=== PATIENT | female | born 1950 | race Caucasian/White ===

== ENCOUNTER 2016-10-27 15:08 | Emergency (ER) | payer OTHER ==
[~2016-10-27] VITALS: Ht 165.1 cm; Wt 52.6 kg
[~2016-10-27 15:08] MED LIST: ASPIRIN325 M2 PO; DILAUDID2 M1 PO; IBUPROFEN800 M1 PO; KEFLEX500 M1 PO; PERCOCET 5-3251 EACH PO
[2016-10-27 15:46] LABS: ABSOLUTE BASOPHIL COUNT 0 /CUMM (0.0-0.2); ABSOLUTE EOSINOPHIL COUNT 0.1 /CUMM (0.0-0.7); ABSOLUTE GRANULOCYTE CT 4.3 /CUMM (1.4-6.5); ABSOLUTE LYMPH COUNT 2.6 /CUMM (1.2-3.4); ABSOLUTE MONOCYTE COUNT 0.5 /CUMM (0.10-0.60); BASOPHIL % 0.6 % (0.0-2.0); EOSINOPHIL % 0.9 % (0-5); GRANULOCYTE % 56.8 % (42.2-75.2); MEAN CORPUSCULAR HGB 33.6 PG (27.0-31.0); MEAN CORPUSCULAR VOLUME 101.8 FL (81.0-99.0); MEAN PLATELET VOLUME 8.3 FL (7.4-10.4); PLATELET COUNT 248 /CUMM (130-400); RBC DISTRIBUTION WIDTH 13.5 % (11.5-14.5); RED BLOOD CELL CT 4.02 /CUMM (4.20-5.40); WHITE BLOOD CELL COUNT 7.6 /CUMM (4.8-10.8)
[2016-10-27 15:56] LABS: PT 11.7 SEC (9.4-12.5); PTT 31 SEC (25-37)
--- NOTE | 2016-10-27 16:58 | ED UPPER/LOWER EXTREMITY COMPL ---
History of Present Illness General Chief Complaint: Lower Extremity Problems Stated Complaint: PT SIB DR FOR POSSIBLE BLOOD CLOT I THE LEFT LEG Source: patient Exam Limitations: no limitations Vital Signs & Intake/Output Vital Signs & Intake/Output Vital Signs Date Time Temp Pulse Resp B/P Pulse O2 O2 Flow FiO2 Ox Delivery Rate 10/27 1727 98.6 76 18 148/85 98 Room Air 10/27 1525 99.0 95 20 156/85 99 Room Air ED Intake and Output 10/28 0000 10/27 1200 Intake Total Output Total Balance Patient 116 lb Weight Allergies Coded Allergies: No Known Drug Allergies (10/27/16) Triage Note: TRIAGE: PT SENT TO ER BY DR SMITH FOR ?BLOOD CLOT S/P PATELLAR FX/SX ON 09/04. PT STATES HAS HAD PAIN SINCE SX BUT HAS BEEN WORSE IN LAST 2 WEEKS. HAS HAD SWELLING WELL. HAD U/S TODAY WHICH WAS REPORTED TO HAVE SHOWN CLOTS. Triage Nurses Notes Reviewed? yes HPI: This patient is a 66-year-old female who presented to the emergency department today sent in at the request of Dr. CASON for evaluation of a clot. The patient had a surgery on 09/03/2016 for a patellar fracture. The patient was put on aspirin after that time, but is currently not on any medication or any anticoagulation. The patient reported that over the last several weeks her leg has been more painful and swollen. She had a unilateral venous Doppler performed today which showed a positive deep venous thrombosis below the knee, nonocclusive in the tibial peroneal trunk and occlusive involving the peroneal and soleal veins. The patient was sent here to the emergency department for further evaluation. The patient reported that the pain is constant and gets up to a 6 out of 10. The pain radiates from the back or knee down to her calf. She denied any difficulty breathing, chest pain, palpitations. She did report some numbness in the bottom of her left foot. (ROBERT BROUSSARD,ARMIDA) Reconcile Medications Apixaban (Eliquis) 5 MG TABLET 1-2 TAB PO BID DVT TAKE 2 TABLETS TWICE A DAY FOR 7 DAYS. THEN TAKE 1 TABLET TWICE A DAY FOR 7 DAYS Aspirin (Aspirin*) 325 MG TABLET 1 TAB PO DAILY BLOOD THINNER Cephalexin (Keflex) 500 MG CAPSULE 1 CAP PO Q6H INFECTION PREVENTION Hydromorphone HCl (Dilaudid) 2 MG TABLET 1-2 TAB PO Q4-6H PRN PAIN Ibuprofen 800 MG TABLET 1 TAB PO Q8P PRN PAIN (TUAN BARBER,SAMANTHA) Past History Travel History Traveled to [place] past 21 day No Medical History Any Pertinent Medical History? see below for history Neurological: NONE EENT: NONE Cardiovascular: NONE Respiratory: NONE Gastrointestinal: NONE Hepatic: NONE Renal: NONE Musculoskeletal: L PATELLAR FX Psychiatric: NONE Endocrine: NONE Blood Disorders: NONE Cancer(s): NONE [employer]'S HELPER/Reproductive: NONE History of MRSA: No History of VRE: No History of CDIFF: No Tetanus Vaccine: 09/03/16 Surgical History Surgical History: LEFT PATELLAR SURGERY Psychosocial History Services at Home None What is your primary language Arabic Tobacco Use: Never used ETOH Use: occasional use Illicit Drug Use: denies illicit drug use Family History Hx Contributory? No (ARMIDA JONES PA-C) Review of Systems Review of Systems Constitutional: Reports: no symptoms. EENTM: Reports: no symptoms. Respiratory: Reports: no symptoms. Cardiovascular: Reports: no symptoms. Gastrointestinal/Abdominal: Reports: no symptoms. Musculoskeletal: Reports: see HPI. Skin: Reports: no symptoms. Neurological/Psychological: Reports: see HPI. All Other Systems: Reviewed and Negative (ARMIDA JONES PA-C) Physical Exam Physical Exam General Appearance: well developed/nourished, no apparent distress, alert, awake Comments: Well-developed well-nourished person in no acute distress HEENT: Normal EENT exam, head normocephalic, moist mucous membranes Neck: Supple Back: normal inspection Cardiovascular: Regular rate and rhythm with no murmurs, rubs, or gallops Respiratory: No respiratory distress. Breath sounds clear to auscultation bilaterally Left lower extremity: Tenderness to palpation over the calf and posterior aspect of the knee. Nonpitting edema to the lower extremity. Range of motion limited at the knee due to immobilizer currently in place. Dorsalis pedis and posterior tibialis pulses 2+ Neuro: Alert oriented x3, cranial nerves II through XII grossly intact. Skin: No appreciable rash on exposed skin, skin is warm and dry. Psych: Mood and affect is normal (ARMIDA JONES PA-C) Progress Differential Diagnosis: arterial insufficiency, cellulitis, CHF, compartment syndrome, contusion, dislocation, DVT, fracture, gout, septic arthritis, sprain Plan of Care: Orders Procedure Date/time Status TROPONIN LEVEL 10/27 1532 Complete PARTIAL THROMBOPLASTIN TIME 10/27 153 Complete PROTHROMBIN TIME 10/27 153 Complete COMPREHENSIVE METABOLIC PANEL 10/27 153 Complete CBC WITHOUT DIFFERENTIAL 10/27 153 Complete Laboratory Tests 10/27/16 1535: Anion Gap 10, Estimated GFR > 60, BUN/Creatinine Ratio 27.1 H, Glucose 104 H, Calcium 10.0, Total Bilirubin 1.0, AST 27, ALT 34, Alkaline Phosphatase 85, Troponin I < 0.01, Total Protein 8.0, Albumin 4.7, Globulin 3.3, Albumin/ Globulin Ratio 1.4, PT 11.7, INR 1.12, APTT 31, CBC w Diff NO MAN DIFF REQ, RBC 4.02 L, MCV 101.8 H, MCH 33.6 H, RDW 13.5, MPV 8.3, Gran % 56.8, Lymphocytes % 34.8, Monocytes % 6.9, Eosinophils % 0.9, Basophils % 0.6, Absolute Granulocytes 4.3, Absolute Lymphocytes 2.6, Absolute Monocytes 0.5, Absolute Eosinophils 0.1, Absolute Basophils 0, PUBS MCHC 33.0 Comments: 10/27/2016 5:14:28 PM: I discussed this patient with Dr. Khan who spoke with the surgical PA prior to this patient's arrival. Reported that she had 2 blood clots in the leg her to come to the emergency department to be started on oral anticoagulation. This patient will be started on 2 weeks of ELIQUIS and instructed to follow up with the primary care physician that she will be set up with by our registration team. (ROBERT BROUSSARD,ARMIDA) Departure Departure Disposition: HOME OR SELF CARE Condition: Stable Clinical Impression Primary Impression: DVT (deep venous thrombosis) Qualifiers: DVT location: lower extremity Affected thrombotic vein of extremity : tibial Laterality: left Chronicity: unspecified Qualified Code: I82.442 - Acute embolism and thrombosis of left tibial vein Referrals: PATIENT HAS NO PRIMARY CARE DR (PCP/Family) Additional Instructions: As discussed please be sure to follow up with the primary care physician who our registration team will be setting you up with. If you have any difficulty getting in with a new primary care physician, please follow-up with your regular primary care physician. U will need to be monitored on this anticoagulation medication. Please take ELIQUIS as directed: 10 mg twice daily for 7 days followed by 5 mg twice daily. Return to the emergency department immediately for any worsening symptoms or concerns. Departure Forms: Customer Survey General Discharge Information Prescriptions: Current Visit Scripts Apixaban (Eliquis) 1-2 TAB PO BID #42 TAB TAKE 2 TABLETS TWICE A DAY FOR 7 DAYS. THEN TAKE 1 TABLET TWICE A DAY FOR 7 DAYS (ROBERT BROUSSARD,ARMIDA) PA/DIGITAL SALES MANAGER Co-Sign Statement Statement: ED Attending supervision documentation- [] I saw and evaluated the patient. I have also reviewed all the pertinent lab results and diagnostic results. I agree with the findings and the plan of care as documented in the PA's/DIGITAL SALES MANAGER's documentation. [X] I have reviewed the ED Record and agree with the PA's/DIGITAL SALES MANAGER's documentation. [] Additions or exceptions (if any) to the PAs/DIGITAL SALES MANAGER's note and plan are summarized below: [] (TUAN BARBER,SAMANTHA)
[2016-10-27] MEDS ORDERED: ELIQUIS5 M2 PO (17:21)
[2016-10-27 17:27] VITALS: BP 148/85
== END 2016-10-27 17:28 ==
LOC: ERH 15:08
PROVIDERS: Emergency Medicine
DX: I82.4Z2 Acute embolism and thrombosis of unspecified deep veins of left distal lower extremity (principal)